=== PATIENT | female | born 1950 | race American Indian/Alaskan Native ===

== ENCOUNTER 2020-02-12 11:27 | Outpatient (CLI) | payer MEDICARE ==
[2020-02-12 13:03] LABS: ABG Base Excess 0.1 mmol/L (-2.0-3.0); ABG HCO3 24.8 mmol/L (20.0-26.0); ABG Methemoglobin 0.5 % (0.0-1.5); ABG Oxygen Saturation 96.9 % (95.0-99.0); ABG PCO2 40.2 mm Hg; ABG PH 7.407 pH Units (7.350-7.450); ABG PO2 90.5 mm Hg (80.0-90.0)
== END 2020-02-12 11:28 | disposition home or self-care (01) ==
LOC: LAB 11:27
PROVIDERS: ATTEND Internal Medicine
DX: K21.9 Gastro-esophageal reflux disease without esophagitis (principal); R06.02 Shortness of breath; I10 Essential (primary) hypertension; R07.9 Chest pain, unspecified
CPT/HCPCS: 36415; 36600; 82803; 85652; 86021; 86038; 86431